=== PATIENT | female | born 1985 | race Caucasian/White ===

== ENCOUNTER 2019-02-06 00:29 | Emergency (ER) | payer SELFPAY ==
[~2019-02-06] VITALS: Ht 170.2 cm; Wt 128.2 kg
[2019-02-06 00:35] VITALS: Ht 170.2 cm; Wt 128.2 kg
[2019-02-06] MEDS ORDERED: VITAMINS (00:37)
[2019-02-06] MEDS ORDERED: HYDROXYCUT (00:37)
[2019-02-06] MEDS ORDERED: PERCOCET 5-3251 TAB PO (00:59)
[2019-02-06] MEDS ORDERED: AUGMENTIN 875-11 TAB PO (00:59)
[2019-02-06 01:45] VITALS: BP 144/100
== END 2019-02-06 01:45 | disposition home or self-care (01) ==
LOC: D.ER 00:29
DX: S81.051A Open bite, right knee, initial encounter (principal); S81.852A Open bite, left lower leg, initial encounter; W54.0XXA Bitten by dog, initial encounter; Y93.89 Activity, other specified; Y92.019 Unspecified place in single-family (private) house as the place of occurrence of the external cause